=== PATIENT | female | born 1950 | race Caucasian/White ===

== ENCOUNTER 2021-04-09 04:27 | Emergency (ER) | payer MEDICARE, OTHER, SELFPAY ==
[2021-04-09 04:30] VITALS: BP 178/103; PULSE 72; RESP 18; TEMP 36.5; O2SAT 96; BMI 33.6
--- NOTE | 2021-04-09 04:49 | CT_ITS ---
PROCEDURE INFORMATION: Exam: CT Abdomen And Pelvis With Contrast Exam date and time: 04/09/2021 4:49 AM Age: 70 years old Clinical indication: Abdominal pain; Epigastric; Additional info: Upper quadrant abdominal pain TECHNIQUE: Imaging protocol: Computed tomography of the abdomen and pelvis with contrast. Radiation optimization: All CT scans at this facility use at least one of these dose optimization techniques: automated exposure control; mA and/or kV adjustment per patient size (includes targeted exams where dose is matched to clinical indication); or iterative reconstruction. Contrast material: ISOVUE; Contrast volume: 75 ml; Contrast route: IV; COMPARISON: No relevant prior studies available. FINDINGS: Liver: The liver is diffusely low in density. Gallbladder and bile ducts: A large gallstone is present. Pancreas: Normal. No ductal dilation. Spleen: Multiple benign-appearing splenic granulomas are noted.. Adrenal glands: Normal. No mass. Kidneys and ureters: Multiple renal hypodensities are seen likely cysts. Stomach and bowel: Postsurgical changes are seen in the region of the cecum consistent with probable partial right colectomy with ileocolonic anastomosis. Appendix: No evidence of appendicitis. Intraperitoneal space: Unremarkable. No free air. No significant fluid collection. Vasculature: Unremarkable. No abdominal aortic aneurysm. Lymph nodes: Unremarkable. No enlarged lymph nodes. Urinary bladder: Unremarkable as visualized. Reproductive: Unremarkable as visualized. Bones/joints: Unremarkable. No acute fracture. Soft tissues: There is diastasis of the abdominal wall musculature and a broad-based periumbilical hernia is noted. IMPRESSION: 1. No acute process noted to explain the patient's abdominal pain. 2. Broad-base periumbilical hernia containing loops of small and large bowel without evidence of incarceration or obstruction. 3. Large gallstone but no evidence of acute cholecystitis. 4. Diffuse hepatic steatosis and benign splenic granulomas. 5. Postsurgical changes following right colonic surgery COMMENTS: Consistent with the [employer]'s Incidental Findings Committee white paper (J Am Cara Radiol 2018): Any incidental renal lesion less than 1 cm or classified as too small to characterize, or any incidental cystic renal lesion characterized as simple-appearing, is likely benign. No follow-up imaging is recommended for these lesions per consensus recommendations based on imaging criteria.
[2021-04-09 05:17] LABS: Basophils # 0.1 K/mm3 (0-0.2); Basophils % 0.8 % (0.1-2.0); Eosinophils # 0.1 K/mm3 (0.0-0.4); Eosinophils % 0.6 % (0.1-12.0); Hematocrit 42.2 % (37.0-47.0); Hemoglobin 14.1 g/dL (12.2-16.2); Lymphocytes # 1.2 K/mm3 (0.7-4.5); Lymphocytes % 16.4 % (10-50); Mean Corpuscular HGB Conc 33.4 g/dL (31.8-35.4); Mean Corpuscular Hemoglobin 31.1 pg (27.0-31.2); Mean Corpuscular Volume 93.2 fl (81-99); Monocytes # 0.4 K/mm3 (0.1-1.0); Monocytes % 4.9 % (1.7-9.3); Neutrophils # 5.7 K/mm3 (1.8-7.8); Neutrophils % 77.2 % (37.0-80.0); Platelet Count 164 K/mm3 (142-424); Red Blood Count 4.53 M/mm3 (4.20-5.40); Red Cell Distribution Width 12.3 % (11.5-17.5); White Blood Count 7.4 K/mm3 (4.8-10.8)
[2021-04-09 05:30] LABS: Alanine Aminotransferase 36 U/L (12-78); Albumin Level 4.3 g/dl (3.5-5.0); Albumin/Globulin Ratio 1.5 (1.1-1.8); Alkaline Phosphatase 89 U/L (38-126); Amylase 61 U/L (30-110); Aspartate Amino Transferase 38 U/L (14-36); Bilirubin,Total 0.4 mg/dl (0.2-1.3); Blood Urea Nitrogen 14 mg/dl (7-17); Calcium 9.4 mg/dl (8.4-10.2); Carbon Dioxide 30 mmol/L (22.0-30.0); Chloride 103 mmol/L (98-107); Creatinine Clearance Estimated 73 mL/min (50-200); Estimated Glomerular Filt Rate 71 ml/min (>60); GFR (African American) 86 ML/MIN (>60); Globulin 2.9 g/dL (1.3-3.2); Glucose 139 mg/dl (74-100); Lipase 100 U/L (23-300); Sodium 139 mmol/L (136-145); Total Protein,Serum 7.2 g/dl (6.3-8.2)
[2021-04-09 05:35] LABS: C-Reactive Protein 5.6 mg/L (0-4)
--- NOTE | 2021-04-09 05:40 | US_ITS ---
PROCEDURE INFORMATION: Exam: US Abdomen, Limited; Right Upper Quadrant Exam date and time: 04/09/2021 5:40 AM Age: 70 years old Clinical indication: Abdominal pain; Localized; Right upper quadrant (ruq); Additional info: Upper quadrant pain right TECHNIQUE: Imaging protocol: US abdomen. Real time ultrasound with image documentation. Limited exam focused on the right upper quadrant. COMPARISON: CT ABDOMEN PELVIS W CON 04/09/2021 5:44 AM FINDINGS: Liver: The liver is diffusely increased in echogenicity. Gallbladder: A large gallstone is noted. The gallbladder wall measures 1.3 mm. Common bile duct: Common bile duct measures 4 mm. Pancreas: Visualized pancreas is unremarkable. Right kidney: Normal. No mass. No hydronephrosis. IMPRESSION: Cholelithiasis. No evidence of acute cholecystitis. No other acute process or mass noted..
[2021-04-09 05:43] LABS: Erythrocyte Sedimentation Rate 24 mm/hr (0-30)
--- NOTE | 2021-04-09 05:44 | [facility].EDNVD ---
ED Disposition Clinical Impression: Cholelithiasis Qualifiers: Cholelithiasis location: gallbladder Cholecystitis presence: without cholecystitis Biliary obstruction: without biliary obstruction Qualified Code(s): K80.20 - Calculus of gallbladder without cholecystitis without obstruction Disposition: Home, Self-Care Condition on Discharge: Good Instructions: DI for Gallstones Additional Instructions: see surg and pcp for follow up Referrals: Ike Rodriguez [Primary Care Provider] - - Critical Care Critical Care Time: No Attestation: On 04/09/21, the high probability of a clinically significant, sudden or life threatening deterioration of the following system(s) required my full and direct attention, intervention and personal management. The time I documented below is in addition to time spent performing reported procedures but includes the following listed in this critical care notation. Medical Decision Making - Medical Records Medical records reviewed: Yes: I reviewed the patient's medical records. - Bruno Inquiry Pt receiving controlled substance: No Vital Signs: 04/09/21 04:30 Temperature 97.7 F Temperature Source Oral Pulse Rate [Right Radial] 72 Respiratory Rate 18 Blood Pressure [Right Arm] 178/103 H Blood Pressure Mean [Right Arm] 128 Blood Pressure Source [Right Arm] Automatic Cuff Blood Pressure Position [Right Arm] Sitting 02 Sat by Pulse Oximetry 96 Oxygen Delivery Method Room Air - Lab Data Lab results reviewed: Yes: I reviewed the patient's lab results. Lab Results 04/09/21 05:00: WBC 7.4, RBC 4.53, Hgb 14.1, Hct 42.2, MCV 93.2, MCH 31.1, MCHC 33.4, RDW 12.3, Plt Count 164, MPV 9.0, Neut % (Auto) 77.2, Lymph % (Auto) 16.4, [place] % (Auto) 4.9, Eos % (Auto) 0.6, Baso % (Auto) 0.8, Neut # (Auto) 5.7, Lymph # (Auto) 1.2, [place] # (Auto) 0.4, Eos # (Auto) 0.1, Baso # (Auto) 0.1, ESR 24 04/09/21 05:00: Sodium 139, Potassium 4.0, Chloride 103, Carbon Dioxide 30, Anion Gap 10.0, BUN 14, Creatinine 0.80, Estimated Creat Clear 73, Estimated GFR 71, Est GFR ( Amer) 86, Glucose 139 H, Calcium 9.4, Total Bilirubin 0.4, AST 38 H, ALT 36, Alkaline Phosphatase 89, C-Reactive Protein 5.6 H, Total Protein 7.2, Albumin 4.3, Globulin 2.9, Albumin/Globulin Ratio 1.5, Amylase 61, Lipase 100, Procalcitonin 0.045 04/09/21 05:50: Urine Color Yellow, Urine Appearance Clear, Urine pH 7.0, Ur Specific Joiner 1.010, Urine Protein Negative, Urine Glucose (UA) Negative, Urine Ketones Negative, Urine Blood Negative, Urine Nitrate Negative, Urine Bilirubin Negative, Urine Urobilinogen 0.2, Ur Leukocyte Esterase Negative, Urine WBC Occasional, Ur Squamous Epith Cells 3-5, Amorphous Sediment Trace Result diagrams: 04/09/21 05:00 04/09/21 05:00 Orders (Tests/Meds): ED MEDICATIONS Generic Name Dose Route Start Last Admin Trade Name Freq PRN Reason Stop Dose Admin Sodium Chloride 1,000 mls @ 999 mls/hr 04/09/21 05:00 04/09/21 04:56 Sod Chlor 0.9% 1000ml Bag IV 04/09/21 06:00 999 mls/hr .Q1H1M SAHARA Administration Sodium Chloride 8 ml 04/09/21 04:50 Sodium Chloride 0.9% 10ml Vial IV 05/09/21 04:49 NEEDED PRN dilute pepcid Discontinued Medications Generic Name Dose Route Start Last Admin Trade Name Freq PRN Reason Stop Dose Admin Famotidine 20 mg 04/09/21 04:50 04/09/21 04:56 Famotidine 20mg/2ml Vial IV 04/09/21 04:51 20 mg ONCE ONE Administration Iopamidol 75 ml 04/09/21 05:55 04/09/21 05:56 Iopamidol-370 (76%);100ml Bottle IV 04/09/21 05:56 75 ml ONCE ONE Administration Ketorolac Tromethamine 30 mg 04/09/21 04:50 04/09/21 04:56 Ketorolac 30mg/Ml Vial IV 04/09/21 04:51 30 mg ONCE ONE Administration Metoclopramide HCl 10 mg 04/09/21 04:50 04/09/21 04:56 Metoclopramide Hcl 10mg/2ml Vial IVP 04/09/21 04:51 10 mg ONCE ONE Administration Sodium Chloride 10 ml 04/09/21 05:55 04/09/21 05:56 Sodium Chloride 0.9% 10ml Syr (Rad Only) IV
[2021-04-09 05:49] LABS: Procalcitonin 0.045 ng/mL (0.0-2.0)
[2021-04-09 06:10] LABS: Microscopic, Urine URINE MICROSCOPIC (MICROSCOPIC)
[2021-04-09 06:19] LABS: Appearance,Urine CLEAR (Clear); Bilirubin,Urine Negative (Negative); Blood, Urine Negative (Negative); Color,Urine YELLOW (Yellow); Glucose,Urine (UA) Negative (Negative); Ketones,Urine Negative (Negative); Leukocyte Esterase,Urine Negative (Negative); Nitrate,Urine Negative (Negative); Protein,Urine Negative (Negative); Urobilinogen,Urine 0.2 EU/dl (0.2)
[2021-04-09 06:27] LABS: Amorphous Sediment,Urine Trace /lpf; WBC,Urine Occasional #/hpf (0-3)
[2021-04-09 06:58] VITALS: BP 176/99; PULSE 72; RESP 16; TEMP 36.5; O2SAT 97
== END 2021-04-09 07:01 | disposition home or self-care (01) ==
PROVIDERS: Emergency Provider Emergency Medicine; PCP Pediatrics
DX: K80.20 Calculus of gallbladder without cholecystitis without obstruction (principal)
CPT/HCPCS: 74177; 76705; 80053; 81001; 82150; 83690; 84145; 85025; 85651; 86140; 96365; 96375; 99283; 99284; Q9967

== ENCOUNTER 2022-10-12 08:24 | Emergency (ER) | payer MEDICARE, OTHER, SELFPAY ==
[2022-10-12 08:35] VITALS: BP 169/93; PULSE 93; RESP 20; TEMP 36.7; O2SAT 95; BMI 34.5
--- NOTE | 2022-10-12 08:40 | EXP.UTC ---
Discharge Plan Disposition Patient Disposition: Home, Self-Care Condition: Good Prescriptions Prescriptions: New amoxicillin [amoxicillin] 875 mg tablet 875 mg PO Q12H Qty: 20 0RF methylprednisolone 4 mg Tablets,Dose Pack 4 mg PO DIRECTED Qty: 21 0RF No Action cetirizine [Zyrtec] 10 mg Tablet 10 mg PO DAILY Referrals Follow up/Referrals: Ike Rodriguez [Primary Care Provider] - See instructions Activity Restrictions/Add. Instructions Additional Instructions/Restrictions: Drink plenty of fluids. Take tylenol or ibuprofen for pain or fever. Take the medications as directed. Follow up with your regular doctor. GO TO THE ER FOR ANY WORSENING SYMPTOMS Clinical Impressions Clinical Impression: Left acute otitis media, Sinusitis Instructions Patient Instructions: Middle Ear Infection, DI for Sinusitis Discharge ED Provider: Art Kate [facility] [place] General Stated complaint: right jaw and ear pain Time Seen by Provider: 10/12/22 08:40 History of Present Illness Provider Complaint: She states that she has had right ear pain and sinus congestion for the past 2 weeks. Related Data Home Medications Medication Instructions Recorded Confirmed cetirizine 10 mg tablet (Zyrtec) 10 mg PO DAILY Allergy Symptoms 10/12/22 10/12/22 Previous Rx's Medication Instructions Recorded amoxicillin 875 mg tablet 875 mg PO Q12H #20 tabs 10/12/22 methylprednisolone 4 mg tablets in 4 mg PO DIRECTED #21 tabs 10/12/22 a dose pack Allergies Allergy/AdvReac Type Severity Reaction Status Date / Time No Known Allergies Allergy Verified 11/24/18 15:01 [facility] Disclaimer: The information contained in this section may have been updated after the patient was seen, as this information can be updated by other users. Medical History Migraine Surgical History History of bowel resection History of section History of cholecystectomy Social History Smoking Status: Never smoker alcohol intake: never current occupational status: retired Travel in the last 8 weeks: None ROS Obtained: Yes All systems reviewed & no additional complaints except as documented Constitutional Constitutional: Denies chills, Reports fever(s) and Reports poor appetite Eyes Eyes: Denies eye discharge ENT Ears, Nose, Mouth, and Throat: Denies ear discharge, Reports otalgia, Denies hearing loss, Denies sinus pain and Reports sore throat Cardiovascular Cardiovascular: Denies chest pain and Denies dyspnea Respiratory Respiratory: Denies chest congestion, Reports cough and Denies dyspnea Gastrointestinal Gastrointestingal: Denies abdominal pain, diarrhea, nausea or vomiting Musculoskeletal Musculoskeletal: Denies arthralgias Integumentary/Breasts Skin/Breast: Denies rash Physical Exam General General appearance: alert and in no apparent distress Head Head exam: atraumatic, normocephalic and normal inspection Eye Eye exam: Present normal appearance; Absent PERRL or EOMI ENT ENT exam: Present mucous membranes moist and normal external ear exam Expanded ENT Exam TM/Canal exam: Bilateral TM: erythema, bulging and effusion Nose exam: Absent sinus tenderness Nasal speculum exam: Bilateral: normal Mouth exam: Present normal external inspection and other; Absent drooling Teeth exam: Present normal inspection Throat exam: Present tonsillar erythema and tonsillomegaly Neck Neck exam: Present normal inspection, full ROM and trachea midline; Absent tenderness, meningismus or lymphadenopathy Chest Chest inspection: Present normal inspection and symmetric chest wall rise; Absent tenderness Respiratory Respiratory exam: Present normal lung sounds bilaterally; Absent respiratory distress, wheezes or stridor Cardiovascular Cardiovascular exam: Present reg
[2022-10-12 09:16] VITALS: BP 169/93; PULSE 93; RESP 20; TEMP 36.7; O2SAT 95
== END 2022-10-12 09:18 | disposition home or self-care (01) ==
PROVIDERS: Emergency Provider Nurse Practitioner Family; PCP Pediatrics
DX: J01.90 Acute sinusitis, unspecified (principal); H66.93 Otitis media, unspecified, bilateral; J02.9 Acute pharyngitis, unspecified
CPT/HCPCS: 99204; 99212; G0463